=== PATIENT | female | born 1995 | race Caucasian/White ===

== ENCOUNTER → 2018-11-15 08:41 | Outpatient (CLI) | payer OTHER, SELFPAY ==
[2018-11-15 10:09] LABS: Alanine Aminotransferase 18 IU/L (9-52); Albumin 3.7 g/dL (3.5-5.0); Albumin Globulin Ratio 1.5 (1.0-2.8); Alkaline Phosphatase 58 U/L (38-126); Aspartate Aminotransferase 25 IU/L (14-36); Bilirubin Total 0.4 mg/dL (0.2-1.3); Bilirubin Unconjugated 0.2 mg/dL (0.0-1.1); Cholesterol 138 mg/dL (140-199); Globulin 2.4 g/dL (1.7-4.1); HDL Cholesterol 46 mg/dL (40-60); HEMOLYSIS < 15 (0-50); LDL Cholesterol Calculated 72 mg/dL (<100); Total Protein 6.1 g/dL (6.3-8.2); Triglycerides 98 mg/dL (35-150)
[2018-11-15 10:25] LABS: HCG Quantitative /Beta subunit < 2.39 mIU/mL
== END ==
PROVIDERS: Visit Provider Physician Assistant
DX: L70.0 Acne vulgaris (principal)
CPT/HCPCS: 36415; 80061; 80076; 84702